=== PATIENT | female | born 1990 | race Caucasian/White ===

== ENCOUNTER 2016-04-19 21:32 | Emergency (ER) | payer BC ==
[2016-04-19 21:45] VITALS: BP 112/68
[2016-04-19] MEDS ORDERED: Meclizine TAB* 12.5 MG PO ONE ×2 (23:01→23:11)
--- NOTE | 2016-04-19 23:10 | UC ---
Ear Complaint HPI - HPI Summary HPI Summary: 25 YO FEMALE WITH THE ONSET THIS EVENING AROUND 6 PM OF 07/01 EAR PAIN/MUFFLED HEARING AND VERTIGO NAUSEA AND VOMITING - History of Current Complaint Chief Complaint: UC Stated Complaint: EAR ACHE, AND NAUSEA Time Seen by Provider: 04/19/16 22:52 Hx Obtained From: Patient Hx Last Menstrual Period: implant Onset/Duration: Gradual Onset, Lasting Hours Severity Initially: Mild Severity Currently: Mild Pain Intensity: 4 Pain Scale Used: 0-10 Numeric Aggravating Factors: Nothing Associated Signs/Symptoms: Positive: Hearing Loss - Allergies/Home Medications Allergies/Adverse Reactions: Allergies Allergy/AdvReac Type Severity Reaction Status Date / Time Tetracycline Allergy Vomiting Verified 04/19/16 21:37 Home Medications: Home Medications Thyroid [[place] Thyroid] 30 mg PO DAILY 04/19/16 [History Confirmed 04/19/16] PMH/Surg Hx/FS Hx/Imm Hx Previously Healthy: Yes Endocrine History Of: Reports: Thyroid Disease - hypothyroid Cardiovascular History Of: Denies: Hypertension, Pacemaker/ICD, Myocardial Infarction, Congestive Heart Failure, Deep Vein Thrombosis Respiratory History Of: Denies: COPD, Asthma, Pneumonia, Pulmonary Embolism GI/ History Of: Denies: Ulcer, Gastrointestinal Bleed, Gall Bladder Disease, Kidney Stones, Renal Disease, Urosepsis Neurological History Of: Denies: TIA, Dementia, Seizures, Migraine Psychological History Of: Reports: Bipolar Disorder Cancer History Of: Denies: Lung Cancer - Surgical History Surgical History: None - Family History Known Family History: Positive: Hypertension, Other - hypothyroidism Negative: None, Unknown, Cardiac Disease, Diabetes, Renal Disease, Respiratory Disease, Seizure Disorder, Blood Disorder - Social History Alcohol Use: Rare Substance Use Type: None Smoking Status (MU): Former Smoker When Did the Patient Quit Smoking/Using Tobacco: quit 04/05 - Immunization History Most Recent Influenza Vaccination: none Review of Systems Constitutional: Negative Skin: Negative Eyes: Negative ENT: Ear Ache Respiratory: Negative Cardiovascular: Negative Gastrointestinal: Vomiting Genitourinary: Negative Motor: Negative Neurovascular: Negative Musculoskeletal: Negative Neurological: Other - VERTIGO Psychological: Negative All Other Systems Reviewed And Are Negative: Yes Physical Exam Triage Information Reviewed: Yes Appearance: Well-Appearing, No Pain Distress, Well-Nourished Vital Signs: Initial Vital Signs Temp 98.4 F 04/19/16 21:39 Pulse 75 04/19/16 21:39 Resp 15 04/19/16 21:39 BP 112/68 04/19/16 21:39 Pulse Ox 100 04/19/16 21:39 Eyes: Positive: Conjunctiva Clear ENT: Positive: Hearing grossly normal, TMs normal - LEFT, TM bulging - RIGHT. Negative: Nasal congestion, Nasal drainage, Tonsillar exudate, Trismus, Muffled/ hoarse voice Dental: Negative: Dental Fracture @, Abscess @ Neck: Positive: Supple, Nontender, No Lymphadenopathy Respiratory: Positive: Lungs clear, Normal breath sounds, No respiratory distress, No accessory muscle use Cardiovascular: Positive: RRR, No Murmur Musculoskeletal: Positive: Strength Intact, ROM Intact, No Edema Neurological Exam: Normal Neurological: Positive: Alert Psychological Exam: Normal Ear Complaint Course/Dx - Differential Dx/Diagnosis Provider Diagnoses: LEFT OTALGIA. LEFT SEROUS OTITIS MEDIA. VERTIGO Discharge - Discharge Plan Condition: Stable Disposition: HOME Prescriptions: Fluticasone NASAL SPRAY 50MCG* [Flonase NASAL SPRAY 50MCG*] 2 spray BOTH NARES DAILY #1 btl Meclizine HCl [Meclizine 25] 25 mg PO QID PRN #20 tab PRN Reason: Vertigo Patient Education Materials: Vertigo (ED), Serous Otitis Media (ED) Forms: *Work Release Referrals: Krystal Cameron MD [Primary Care Provider] - If Needed Additional Instructions: RECHECK FOR NEW OR WORSENING SYMPTOMS RECHECK EARLY NEXT WEEK IF NOT BETTER
== END 2016-04-19 23:23 | disposition home or self-care (01) ==
LOC: UCEAST 21:32
DX: H65.92 Unspecified nonsuppurative otitis media, left ear (principal); R42 Dizziness and giddiness; Z88.8 Allergy status to other drugs, medicaments and biological substances; Z87.891 Personal history of nicotine dependence
CPT/HCPCS: 99212; A9270-GY; G0463

== ENCOUNTER 2016-07-01 14:53 | Emergency (ER) | payer BC ==
[2016-07-01 15:35] VITALS: BP 107/78
--- NOTE | 2016-07-01 16:36 | UC ---
Respiratory Complaint HPI - HPI Summary HPI Summary: Cough, nasal congestion, clammy, achy, ST starting 06/26/16. Has been out of work since 06/27. Was seen at [facility], told it was viral. Denies trouble breathing. - History of Current Complaint Chief Complaint: UCRespiratory Stated Complaint: CONGESTION,COUGH,COLD,TOOTH ACHE Time Seen by Provider: 07/01/16 16:05 Hx Obtained From: Patient Hx Last Menstrual Period: IMPLANTED CONTROL ?: No Onset/Duration: Gradual Onset, Lasting Days Timing: Constant Severity Initially: Mild Severity Currently: Moderate Character: Cough: Productive Alleviating Factors: Bronchodilator, OTC Meds Associated Signs And Symptoms: Positive: Chills, URI, Nasal Congestion - Allergies/Home Medications Allergies/Adverse Reactions: Allergies Allergy/AdvReac Type Severity Reaction Status Date / Time Tetracycline Allergy Vomiting Verified 07/01/16 15:35 Home Medications: Home Medications Albuterol HFA INHALER* [Ventolin HFA Inhaler*] PRN 07/01/16 [History] Benzonatate CAP* [Tessalon 100 MG CAP*] PRN 07/01/16 [History] Dextromethorphan-Phenylephrine [Vicks Dayquil Cold & Flu 10-5-325 mg/15Ml] 1 liq PO PRN 07/01/16 [History] Ibuprofen TAB* [Advil TAB*] 800 mg PO PRN 07/01/16 [History] Implanon* 07/01/16 [History] Lsjurkgwfscll-Negjyeeilt-Ehyie [Nyquil Severe Cold/Flu 5-6.25-10-325 mg/15Ml] 1 liq PO PRN 07/01/16 [History] Saline Nasal [place]* PRN 07/01/16 [History] guaiFENesin ER TAB [Mucinex*] PRN 07/01/16 [History] PMH/Surg Hx/FS Hx/Imm Hx Endocrine History Of: Reports: Thyroid Disease - hypothyroid Cardiovascular History Of: Denies: Hypertension, Pacemaker/ICD, Myocardial Infarction, Congestive Heart Failure, Deep Vein Thrombosis Respiratory History Of: Denies: COPD, Asthma, Pneumonia, Pulmonary Embolism GI/ History Of: Denies: Ulcer, Gastrointestinal Bleed, Gall Bladder Disease, Kidney Stones, Renal Disease, Urosepsis Neurological History Of: Denies: TIA, Dementia, Seizures, Migraine Psychological History Of: Reports: Bipolar Disorder Cancer History Of: Denies: Lung Cancer - Surgical History Surgical History: None - Family History Known Family History: Positive: Hypertension, Other - hypothyroidism Negative: None, Unknown, Cardiac Disease, Diabetes, Renal Disease, Respiratory Disease, Seizure Disorder, Blood Disorder - Social History Occupation: Employed Full-time Lives: With Family Alcohol Use: None Alcohol Amount: IN RECOVERY Substance Use Type: None Smoking Status (MU): Current Every Day Smoker Type: Cigarettes Amount Used/How Often: 5 CIG/DAY When Did the Patient Quit Smoking/Using Tobacco: quit 04/05 - Immunization History Most Recent Influenza Vaccination: none Review of Systems Constitutional: Chills, Fatigue Skin: Negative Eyes: Negative ENT: Sore Throat, Ear Ache - mild, Nasal Discharge Respiratory: Cough Cardiovascular: Negative Gastrointestinal: Negative Genitourinary: Negative Motor: Negative Neurovascular: Negative Musculoskeletal: Negative Neurological: Negative Psychological: Negative All Other Systems Reviewed And Are Negative: Yes Physical Exam Triage Information Reviewed: Yes Appearance: No Pain Distress, Obese Vital Signs: Initial Vital Signs Temp 98.4 F 07/01/16 15:30 Pulse 99 07/01/16 15:30 Resp 18 07/01/16 15:30 BP 107/78 07/01/16 15:30 Vital Signs Reviewed: Yes Eye Exam: Normal Eyes: Positive: Conjunctiva Clear ENT: Positive: Pharynx normal, Nasal congestion, TMs normal. Negative: Tonsillar swelling, Tonsillar exudate Dental: Positive: Percussion Tenderness @ - #30, Gross Decay/Caries @ Neck exam: Normal Neck: Positive: Supple, Nontender, No Lymphadenopathy Respiratory Exam: Other - occ cough Respiratory: Positive: Chest non-tender, Lungs clear, Normal breath sounds, No respiratory distress, No accessory muscle use Cardiovascular: Positive: No Murmur Musculoskeletal Exam: Normal Musculoskeletal: Positive: Strength Intact, ROM Intact Neurological Exam: Normal Neurological: Positive: Alert Psychological Exam: Normal Skin Exam: Normal Respiratory Course/Dx - Differential Dx/Diagnosis Provider Diagnoses: URI, likely viral Discharge - Discharge Plan Condition: Stable Disposition: HOME Prescriptions: Guaifenesin-Codeine [Guaiatussin AC 100-10 mg/5Ml] 5 - 10 ml PO Q6H #120 ml MDD 40mL Patient Education Materials: Upper Respiratory Infection (ED) Forms: *Work Release Referrals: Krystal Cameron MD [Primary Care Provider] - Additional Instructions: Call or return if you develop increasing fever, shortness of breath, chest pain , bloody sputum, or otherwise worsen. If you have not improved at all after several days, contact your primary care physician or return here. I expect you to start seeing gradual improvement very soon.
== END 2016-07-01 16:18 | disposition home or self-care (01) ==
LOC: UCEAST 14:53
DX: J06.9 Acute upper respiratory infection, unspecified (principal); E03.9 Hypothyroidism, unspecified; F17.210 Nicotine dependence, cigarettes, uncomplicated; Z88.3 Allergy status to other anti-infective agents
CPT/HCPCS: 87502; 99212; G0463

== ENCOUNTER 2016-09-08 20:21 | Emergency (ER) | payer BC ==
[2016-09-08 20:49] VITALS: BP 122/75
--- NOTE | 2016-09-08 21:11 | UC ---
Abdominal Pain Female HPI - HPI Summary HPI Summary: pt presents with c/o sudden onset epigastric pain and bloating. Pt has history of bulimia from age [age] and is concerned about esophageal varices. Pt reports eating only one meal today and sudden onset of epigastric discomfort and abdominal blaoting two hours post eating. - History of Current Complaint Chief Complaint: UCAbdominalPain Stated Complaint: ABDOMINAL PAIN Time Seen by Provider: 09/08/16 20:50 Hx Obtained From: Patient Hx Last Menstrual Period: IMPLANTED CONTROL ?: No Onset/Duration: Sudden Onset, Lasting Hours - 2 Timing: Constant Severity Initially: Mild Severity Currently: Mild Location: Epigastric Radiates: No Character: Aching, Colicy, Dull, Other - bloating Aggravating Factor(s): Food Alleviating Factor(s): Nothing Associated Signs and Symptoms: Positive: Other: - abdominal bloating Allergies/Adverse Reactions: Allergies Allergy/AdvReac Type Severity Reaction Status Date / Time Tetracycline Allergy Vomiting Verified 09/08/16 20:36 PMH/Surg Hx/FS Hx/Imm Hx Previously Healthy: Yes - bulimia GI/ History: Other - bulimia om recovery Other GI/ History: bulimia - Surgical History Surgical History: None - Family History Known Family History: Positive: Hypertension, Other - hypothyroidism Negative: None, Unknown, Cardiac Disease, Diabetes, Renal Disease, Respiratory Disease, Seizure Disorder, Blood Disorder - Social History Lives: With Family Alcohol Use: None Alcohol Amount: IN RECOVERY Substance Use Type: None 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 Smoking Status (MU): Light Every Day Tobacco Smoker Type: Cigarettes Amount Used/How Often: 3 CIG/DAY When Did the Patient Quit Smoking/Using Tobacco: quit 04/05 - Immunization History Most Recent Influenza Vaccination: none Review of Systems Constitutional: Negative Skin: Negative Eyes: Negative ENT: Negative Respiratory: Negative Cardiovascular: Negative Gastrointestinal: Abdominal Pain Genitourinary: Negative Motor: Negative Neurovascular: Negative Musculoskeletal: Negative Neurological: Negative Psychological: Negative All Other Systems Reviewed And Are Negative: Yes Physical Exam Triage Information Reviewed: Yes Appearance: Well-Appearing Vital Signs: Initial Vital Signs Temp 99.3 F 09/08/16 20:42 Pulse 94 09/08/16 20:42 Resp 18 09/08/16 20:42 BP 122/75 09/08/16 20:42 Pulse Ox 97 09/08/16 20:42 Eye Exam: Normal ENT Exam: Normal Neck exam: Normal Respiratory Exam: Normal Cardiovascular Exam: Normal Abdomen Description: Positive: Other: - epigastric discomfort Bowel Sounds: Positive: Present Musculoskeletal Exam: Normal Neurological Exam: Normal Psychological Exam: Normal Skin Exam: Normal Abd Pain Female Course/Dx - Differential Dx/Diagnosis Differential Diagnosis: Other - epigastric pain, abdominal pain and bloating Provider Diagnoses: epigastric pain, abdominal pain and bloating Discharge - Discharge Plan Condition: Stable Disposition: HOME Patient Education Materials: Gas and Bloating (ED), Abdominal Pain (ED) Referrals: Krystal Cameron MD [Primary Care Provider] - As Soon As Possible
== END 2016-09-08 21:15 | disposition home or self-care (01) ==
LOC: UCCORT 20:21
DX: R10.13 Epigastric pain (principal); R14.0 Abdominal distension (gaseous); Z86.59 Personal history of other mental and behavioral disorders
CPT/HCPCS: 99211; G0463